=== PATIENT | female | born 1970 | race Caucasian/White ===

== ENCOUNTER 2018-09-02 00:39 | Emergency (ER) | payer OTHER ==
[~2018-09-02] VITALS: Ht 149.9 cm; Wt 53.5 kg
[2018-09-02 00:42] VITALS: Ht 149.9 cm; Wt 53.5 kg
[2018-09-02 01:36] VITALS: BP 150/76
== END 2018-09-02 01:36 | disposition home or self-care (01) ==
LOC: ED 00:39
DX: J02.9 Acute pharyngitis, unspecified (principal); H92.01 Otalgia, right ear; M79.10 Myalgia, unspecified site
CPT/HCPCS: J1885